=== PATIENT | female | born 1990 | race Caucasian/White ===

== ENCOUNTER 2019-04-08 15:10 | Observation (INO) | payer OTHER ==
[~2019-04-08] VITALS: Ht 152.4 cm; Wt 57.6 kg
[2019-04-08 17:47] VITALS: BP 104/59
[2019-04-08] MEDS ORDERED: PREN-217 PO (17:49)
== END 2019-04-08 23:30 | disposition home or self-care (01) ==
LOC: 4S 15:10
PROVIDERS: ADMIT Obstetrics & Gynecology; ATTEND Obstetrics & Gynecology
DX: O62.9 Abnormality of forces of labor, unspecified (principal); Z3A.39 39 weeks gestation of pregnancy
CPT/HCPCS: 81002; G0378

== ENCOUNTER 2019-04-09 17:20 | Inpatient (IN) | payer OTHER ==
[~2019-04-09] VITALS: Ht 150 cm; Wt 56.2 kg
[~2019-04-09 17:20] MED LIST: PREN-217 PO
[2019-04-09] MEDS ORDERED: RINGERS SOLUTION,LACTATED 1,000 ML IV PRN (17:59)
[2019-04-09] MEDS ORDERED: OXYTOCIN 30 UNITS/LACT RINGERS 500 ML IV ONE (17:59)
[2019-04-09] MEDS ORDERED: TERBUTALINE SULFATE 1 MG/ML VIAL SQ PRN (18:00)
[2019-04-09] MEDS ORDERED: CITRIC ACID/SODIUM CITRATE 30 ML SOLUTION UDCUP PO PRN (18:00)
[2019-04-09] MEDS ORDERED: METOCLOPRAMIDE HCL 5 MG/ML 2 ML VIAL IVP PRN (18:00)
[2019-04-09] MEDS ORDERED: METHYLERGONOVINE MALEATE 0.2 MG/ML VIAL IM PRN (18:00)
[2019-04-09] MEDS ORDERED: FentaNYL CITRATE-PF 100 MCG/2 ML VIAL IVP PRN (18:00)
[2019-04-09] MEDS ORDERED: LIDOCAINE/PF 1% 30 ML VIAL INJ PRN (18:00)
[2019-04-09 18:09] VITALS: BP 108/68
[2019-04-09] MEDS ORDERED: ROPIVACAINE HCL/PF 0.2% 100 ML ED ONE (18:29)
[2019-04-09] MEDS ORDERED: LIDOCAINE/PF 2% 5 ML VIAL ONE (18:29)
[2019-04-09] MEDS ORDERED: ONDANSETRON HCL 4 MG/2 ML VIAL IVP PRN (18:45)
[2019-04-09] MEDS ORDERED: NALBUPHINE HCL 10 MG/ML VIAL IVP PRN (18:45)
[2019-04-09] MEDS ORDERED: DiphenhydrAMINE HCL 50 MG/ML VIAL IVP PRN (18:45)
[2019-04-09 18:52] LABS: BASOPHILS % (AUTO) 0.2 % (0.0-2.0); EOSINOPHILS % (AUTO) 0 % (1.0-6.0); HEMATOCRIT 38.3 % (36-46); LYMPHOCYTES # (AUTO) 1.2 K/uL (1.0-4.8); LYMPHOCYTES % (AUTO) 13.1 % (22.0-44.0); MEAN CORPUSCULAR HEMOGLOBIN 30.8 pg (26.0-34.0); MEAN CORPUSCULAR HGB CONC 33.9 G/dL (31.0-37.0); MEAN CORPUSCULAR VOLUME 91 fL (80-100); MONOCYTES # (AUTO) 0.7 K/uL (0.1-1.0); MONOCYTES % (AUTO) 8.1 % (2.0-9.0); NEUTROPHILS # (AUTO) 6.9 K/uL (1.8-7.7); NEUTROPHILS % (AUTO) 78.6 % (40.0-70.0); PLATELET COUNT (AUTO) 228 K/uL (150-450); RED BLOOD CELL COUNT(AUTO) 4.21 MIL/uL (4.00-5.20)
[2019-04-09] MEDS: RINGERS SOLUTION,LACTATED 1,000 ML IV SCH ×3 (18:53→22:29)
[2019-04-09] MEDS: ROPIVACAINE HCL/PF 0.2% 100 ML ED PRN (18:54)
[2019-04-09] MEDS ORDERED: OXYGEN THERAPY IH SCH (20:00)
[2019-04-09] MEDS ORDERED: OXYTOCIN 30 UNITS/LACT RINGERS 500 ML IV PRN (20:46)
[2019-04-10] MEDS: ROPIVACAINE HCL/PF 0.2% 100 ML ED PRN (00:41)
[2019-04-10] MEDS ORDERED: GENTAMICIN SULFATE 180 MG in DEXTROSE 5%-WATER 50 ML IV ONE (01:45)
[2019-04-10] MEDS ORDERED: AMPICILLIN SODIUM 2 GM/NS 100 ML IV ONE (01:45)
[2019-04-10] MEDS: RINGERS SOLUTION,LACTATED 1,000 ML IV SCH (04:01)
[2019-04-10] MEDS ORDERED: RINGERS SOLUTION,LACTATED 1,000 ML IV ONE (05:04)
[2019-04-10] MEDS ORDERED: IBUPROFEN 600 MG TABLET PO PRN (05:15)
[2019-04-10] MEDS ORDERED: LANOLIN 7 GM OINTMENT TP PRN (05:15)
[2019-04-10] MEDS ORDERED: OxyCODONE HCL/ACETAMINOPHEN 5-325 MG TABLET PO PRN ×2 (05:15)
[2019-04-10] MEDS ORDERED: GLYCERIN/WITCH HAZEL LEAF 40 PADS JAR TP PRN (05:15)
[2019-04-10] MEDS ORDERED: BENZOCAINE 20%/MENTHOL 56 GM SPRAY CANISTER TP PRN (05:15)
[2019-04-10] MEDS ORDERED: MEASLES/MUMPS/RUBELLA VACCINE, LIVE 0.5 ML/VIAL SQ ONE (05:15)
[2019-04-10] MEDS: MAGNESIUM HYDROXIDE SUSPENSION 30 ML UDCUP PO SCH ×2 (09:38→21:34)
[2019-04-11] MEDS ORDERED: IBUP-2071 PO (09:14)
[2019-04-11] MEDS ORDERED: DOCU-275 PO (09:15)
[2019-04-11] MEDS ORDERED: FERR-89 PO (09:15)
== END 2019-04-11 12:00 | disposition home or self-care (01) | DRG 807 ==
LOC: 4S 17:20 → OBSVTOIN 17:20
PROVIDERS: ADMIT Obstetrics & Gynecology; ATTEND Obstetrics & Gynecology
PROC: 10E0XZZ Delivery of Products of Conception, External Approach (ICD-10-PCS; principal; 2019-04-10)
PROC: 0KQM0ZZ Repair Perineum Muscle, Open Approach (ICD-10-PCS; 2019-04-10)
PROC: 3E0R3BZ Introduction of Anesthetic Agent into Spinal Canal, Percutaneous Approach (ICD-10-PCS; 2019-04-10)
PROC: 00HU33Z Insertion of Infusion Device into Spinal Canal, Percutaneous Approach (ICD-10-PCS; 2019-04-10)
DX: O70.1 Second degree perineal laceration during delivery (principal); Z37.0 Single live birth; Z3A.39 39 weeks gestation of pregnancy
CPT/HCPCS: 86850; 86900; 86901; J0290; J1580; J2590; J2795; J3490; J7060; J7120